=== PATIENT | female | born 1980 | race Caucasian/White ===

== ENCOUNTER 2022-08-29 11:20 | Outpatient (CLI) | payer OTHER, SELFPAY ==
--- NOTE | 2022-08-29 11:47 | MM_ITS ---
WS: [id number] SCREENING DIGITAL BREAST TOMOSYNTHESIS MAMMOGRAM WITH CAD HISTORY: SCREENING COMPARISON: None available. Bilateral CC and MLO with tomosynthesis and synthetic mammography submitted. Computer aided detection analyzed. Breast composition: There are scattered areas of fibroglandular density. Two asymmetries in the later al inferior RIGHT breast need further evaluation. This is a single asymmetry in the superior LEFT manisha ast on the MLO. No prior studies for comparison. MM/[place] [id number] IMPRESSION: BI-RADS: 0-Incomplete: Need additional imaging evaluation FOLLOW UP: Need Additional Imaging Bilateral breasts: Spot compression views (CC and MLO). True ML. Ultrasound to follow if abnormality persists.
== END 2022-08-29 11:21 | disposition home or self-care (01) ==
PROVIDERS: PCP Registered Nurse; Visit Provider Registered Nurse
DX: Z12.31 Encounter for screening mammogram for malignant neoplasm of breast (principal)
CPT/HCPCS: 77063; 77067

== ENCOUNTER 2022-09-05 21:06 | Emergency (ER) | payer OTHER, SELFPAY ==
[2022-09-05 21:10] VITALS: BP 125/86; PULSE 97; RESP 22; TEMP 36.6; O2SAT 95; BMI 34.1
--- NOTE | 2022-09-05 21:20 | ED_ITS ---
HPI - General Adult General: Chief complaint: General Medical Stated complaint: abdomen, constipation, rectal bleed after BM Time Seen by Provider: 09/05/22 21:17 History of Present Illness: Ms Upton is a 42-year-old lady presenting to the emergency department due to rectal pain and bleeding with constipation. She denies history of similar. Onset of symptoms is days however has progressively worsened. She reports rectal pain adamant that she is unable to sit. She denies other changes in health. No other specific changes in health, exacerbating, or alleviating factors identified. Location: pelvis and buttocks Severity: severe Pain Consistency: constant Relieving factors: none Exacerbating factors: other Associated symptoms: Reports other Review of Systems General: Reports: 10 or more systems reviewed and unremarkable except in HPI and below PFSH ED PFSH: Medical History Endometriosis Surgical History History of cholecystectomy History of endometrial ablation Apr 2016 Family History Grandfather Heart disease Mother Cancer lung Father Cancer lung Grandmother Cancer maternal lung Diabetes paternal Denies family history of Lung disease Stroke Social History Smoking and tobacco status: never smoked Second hand smoke exposure: Yes Alcohol intake: never Adopted: No Caregiver/support person: No Lives independently: No Household members: spouse Marital status: service: No Current occupational status: unemployed Sexually active: Yes Current gender identity: Female Physical Exam Const: COMMON NORMALS: alert GENERAL APPEARANCE: cooperative, well developed and in distress (Uncomfortable appearing secondary to pain) HENMT: COMMON NORMALS: normocephalic and atraumatic HEAD & SCALP: normocephalic and atraumatic Eye: COMMON NORMALS: conjunctivae normal CONJUNCTIVA: Yes conjunctivae normal SCLERA: sclerae normal Neck/C-Spine: COMMON NORMALS: supple GENERAL: Yes trachea midline Resp: COMMON NORMALS: No use of accessory muscles and clear to auscultation bilaterally EFFORT & INSPECTION: Yes able to speak in complete sentences AUSCULTATION: clear to auscultation bilaterally Cardio: COMMON NORMALS: regular rate and regular rhythm RATE: regular rate RHYTHM: regular rhythm GI: COMMON NORMALS: Soft to palpation PALPATION: Yes Soft to palpation and No Tenderness to palpation present (GI) Extremity: GENERAL: Yes normal exam except as noted and No edema Neuro: COMMON NORMALS: moves all extremities SENSORIUM/ORIENTATION: Yes alert and No Orientation impaired Psych: COMMON NORMALS: mental status grossly normal and Normal thought process present THOUGHT PROCESS: Normal thought process present Course Vital Signs: Vital signs: Vital Signs Temperature 97.9 F 09/05/22 21:10 Pulse Rate 99 09/05/22 21:51 Respiratory Rate 16 09/05/22 21:51 Blood Pressure 125/86 09/05/22 21:10 Pulse Oximetry 100 09/05/22 21:51 Oxygen Delivery Me thod 09/05/22 21:10 [facility] - General Adult Medical Decision Making 42-year-old lady presenting with rectal pain and constipation with small mount of rectal bleeding associated with straining. Patient is nontoxic and quite uncomfortable. Analgesia given. Rectal exam performed with advertising supervisor present. Anal disimpaction performed with only small amount of hard stool extraluminal however within the rectum I did break up some hard chunks of stool. Subsequently ordered p.o. and [place] medications however patient had successful bowel movement with large volume and felt significant improved with complete resolution of rectal pain and reported bleeding. Most likely etiology of patient's symptoms is fecal impaction with improvement with ED treatment. Need for continued regimen discussed need for continued treatment at home which the patient prefers. The results of ED evaluation were discussed with the patient including prescriptions and/or symptomatic cares (if applicable) including appropriate and responsible use, followup plan, and return precautions. The patient verbalized understanding and felt safe for discharge. Medical Records I reviewed the patient's medical records. Lab Data I reviewed the patient's lab results. Discharge Plan Discharge Patient Disposition: Home Clinical Impression: Constipation, Pain, rectal Condition: Stable Prescriptions: New Miralax 17 gram powder in packet 17 g PO TID Qty: 100 0RF No Action pantoprazole 40 mg tablet,delayed release (DR/EC) 40 mg PO DAILY 30 Days Qty: 30 0RF Discharge Orders: Discharge ED (Routine); Ordered 09/05/22 Ordered By: Nolan Cameron Referrals: Jessi Lindsay FNP [Primary Care Provider] - Discharge Diet: Advance as tolerated and Clear Liquid Discharge Activity: Increase activity as tolerated Patient Instructions: Constipation (ED), Rectal Bleeding (ED), Fecal Impaction (ED), Opioid Safety Activity Restrictions/Additional Instructions: Thank you for visiting the emergency department. You were seen and evaluated for constipation and rectal pain. The most likely cause of this is impaction with constipation. We are pleased that you had improvement after ED treatment. I will prescribe continued bowel regimen. Start with miralax 3 times daily for 3 days and then adjust as needed for multiple applesauce consistency stools per day. Please follow-up with your primary care provider. Return to the emergency department for uncontrolled symptoms or anything else that you are concerned about and feel needs emergency department evaluation. Coding Level of Care Code ED Import Coordinator for Linda Hester
[2022-09-05] MEDS: fentaNYL 50 mcg/mL INJ 2mL IVP (21:46)
[2022-09-05 21:51] VITALS: PULSE 99; RESP 16; O2SAT 100
[2022-09-05] MEDS: lidocaine 2% Urojet 20 mL TOPICAL (22:15)
== END 2022-09-05 22:30 | disposition home or self-care (01) ==
PROVIDERS: Emergency Provider Emergency Medicine; PCP Registered Nurse
DX: K59.00 Constipation, unspecified (principal)
CPT/HCPCS: 96374; 99284; J3010

== ENCOUNTER 2022-10-11 08:56 | Outpatient (CLI) | payer OTHER, SELFPAY ==
--- NOTE | 2022-10-11 09:06 | MM_ITS ---
WS: [id number] BILATERAL 3D TOMOSYNTHESIS DIGITAL DIAGNOSTIC MAMMOGRAPHY WITH CAD CLINICAL INFORMATION: BILAT DEN/ HISTORY: History of breast reduction. Additional views. COMPARISON: None. TECHNIQUE: Bilateral CC, MLO, and ML views. FINDINGS: The breasts are composed of extremely dense tissue, which can limit the detection of small underlying mass lesions. Previously described bilateral breast asymmetries are again seen and partially bev s out on the spot compression views. Ultrasound described below. ULTRASOUND BREAST BILATERAL TECHNIQUE: Ultrasound bilateral breast focused area of concern. CLINICAL INFORMATION: BILAT DEN/ FINDINGS: Incidental ductal ectasia bilaterally. RIGHT BREAST: Normal ultrasound RIGHT breast at the 6 to 9:00 position. LEFT BREAST: Normal ultrasound LEFT breast 12 to 3:00 position. MM/[place] [id number] IMPRESSION: BI-RADS: 2-Benign FOLLOW UP: 1 Year Follow-up Recommend return to annual screening mammography.
--- NOTE | 2022-10-11 09:11 | US_ITS ---
WS: [id number] BILATERAL 3D TOMOSYNTHESIS DIGITAL DIAGNOSTIC MAMMOGRAPHY WITH CAD CLINICAL INFORMATION: BILAT DEN/ HISTORY: History of breast reduction. Additional views. COMPARISON: None. TECHNIQUE: Bilateral CC, MLO, and ML views. FINDINGS: The breasts are composed of extremely dense tissue, which can limit the detection of small underlying mass lesions. Previously described bilateral breast asymmetries are again seen and partially bev s out on the spot compression views. Ultrasound described below. ULTRASOUND BREAST BILATERAL TECHNIQUE: Ultrasound bilateral breast focused area of concern. CLINICAL INFORMATION: BILAT DEN/ FINDINGS: Incidental ductal ectasia bilaterally. RIGHT BREAST: Normal ultrasound RIGHT breast at the 6 to 9:00 position. LEFT BREAST: Normal ultrasound LEFT breast 12 to 3:00 position. US/US breast BI limited* [id number] IMPRESSION: BI-RADS: 2-Benign FOLLOW UP: 1 Year Follow-up Recommend return to annual screening mammography.
== END 2022-10-11 08:57 | disposition home or self-care (01) ==
LOC: RAD 08:58
PROVIDERS: PCP Registered Nurse; Visit Provider Registered Nurse
DX: R92.8 Other abnormal and inconclusive findings on diagnostic imaging of breast (principal)
CPT/HCPCS: 76642; 77062; G0279

== ENCOUNTER → 2022-11-23 08:09 | Outpatient (BNVA) | payer OTHER, SELFPAY | PROVIDERS: PCP Registered Nurse; Visit Provider Nurse Practitioner Women's Health | DX: Z32.00 Encounter for pregnancy test, result unknown (principal) | CPT/HCPCS: 81025 ==

== ENCOUNTER → 2022-12-10 09:50 | Outpatient (BNVA) | payer OTHER, SELFPAY | PROVIDERS: PCP Registered Nurse; Visit Provider Obstetrics & Gynecology | DX: Z34.90 Encounter for supervision of normal pregnancy, unspecified, unspecified trimester (principal); Z3A.00 Weeks of gestation of pregnancy not specified | CPT/HCPCS: 80307; 84315; 87086 ==

== ENCOUNTER → 2022-12-31 10:00 | Outpatient (BNVA) | payer OTHER, SELFPAY | PROVIDERS: PCP Registered Nurse; Visit Provider Obstetrics & Gynecology | DX: O09.899 Supervision of other high risk pregnancies, unspecified trimester (principal); O09.519 Supervision of elderly primigravida, unspecified trimester; O21.9 Vomiting of pregnancy, unspecified | CPT/HCPCS: 84315; 84443; 85027; 86592; 86762; 86803; 86850; 86900; 87340; 87491; 87591; 87661; 87806 ==

== ENCOUNTER → 2023-10-28 09:27 | Outpatient (BNVA) | payer OTHER, SELFPAY | PROVIDERS: PCP Registered Nurse; Referring Provider Registered Nurse; Visit Provider Specialist | DX: M25.561 Pain in right knee (principal); S89.91XA Unspecified injury of right lower leg, initial encounter; X50.9XXA Other and unspecified overexertion or strenuous movements or postures, initial encounter | CPT/HCPCS: 73560; 73565 ==

== ENCOUNTER 2023-11-29 14:10 | Outpatient (CLI) | payer OTHER, SELFPAY ==
--- NOTE | 2023-11-29 14:30 | MR_ITS ---
WS: [id number] MRI RIGHT KNEE NONCONTRAST TECHNIQUE: Axial PD, coronal PD fat sat, coronal PD, sagittal PD, and sagittal PD fat-sat images obta ined. CLINICAL INFORMATION: right knee pain COMPARISON: None. FINDINGS: Distal quadriceps and patella tendons are intact. Hypertrophic patella. Normal ACL and PCL. Hypertrop hic patella. Small suprapatellar effusion. Moderate chondromalacia patella worse involving the latera l patellar facet. High-grade tear of the medial patellar retinaculum with laxity involving the retina culum. Subluxation of the patella on the trochlear groove. Somewhat shallow trochlear groove. No visu alized contusion in the femoral condyle. No visualized intra-articular loose bodies or fragments. Sma ll amount of bony edema at the medial patellar retinacular insertion. Normal medial meniscus. Suspected radial tear involving the lateral meniscus at the meniscal root. No rmal lateral collateral ligament. Normal biceps femoris. Small amount of fluid and edema deep to the MCL which appears intact. Normal popliteal fossa. MR/MR knee RT wo con* [id number] IMPRESSION: 1. Evidence of recent patellar dislocation with high-grade tear of the medial patellar retinaculum. Small amount of edema in the medial patella facet. No vis ualized avulsion fragments. 2. Subluxation of the patella in the trochlear groove. Somewhat shallow trochl ear groove. Chondromalacia and chondral contusion involving the lateral patella r facet. 3. No visualized contusion in the lateral femoral condyle. 4. Suspect possible radial tear involving the lateral meniscus at the meniscal root. Normal medial meniscus. 5. Small suprapatellar effusion. 6. Small amount of fluid and edema deep to the medial collateral ligament comp atible with grade 1-2 injury. 7. Normal lateral collateral ligament. Outbridge grading: grade II: blister-like swelling/fraying of articular cartila ge extending to surface
== END 2023-11-29 14:11 | disposition home or self-care (01) ==
LOC: RAD 14:10
PROVIDERS: PCP Registered Nurse; Visit Provider Specialist
DX: S83.094A Other dislocation of right patella, initial encounter (principal); S83.412A Sprain of medial collateral ligament of left knee, initial encounter; M22.41 Chondromalacia patellae, right knee; X58.XXXA Exposure to other specified factors, initial encounter
CPT/HCPCS: 73721

== ENCOUNTER 2024-10-20 15:28 | Outpatient (CLI) | payer OTHER, SELFPAY ==
--- NOTE | 2024-10-20 15:36 | XRR_ITS ---
PROCEDURE INFORMATION: Exam: XR Chest Exam date and time: 10/20/2024 3:57 PM Age: 44 years old Clinical indication: Shortness of breath; Prior surgery; Surgery date: 6+ months; Surgery type: Breast reduction, gb; Recently dx of weather asthma on vacation for the last week, difficulty breathing and extreme SOB upon exertion; Additional info: J98.01 - acute bronchospasm TECHNIQUE: Imaging protocol: Radiologic exam of the chest. Views: 2 views. COMPARISON: No relevant prior studies available. FINDINGS: Lungs: Unremarkable. No consolidation. Pleural spaces: Unremarkable. No pleural effusion. No pneumothorax. Heart/Mediastinum: Unremarkable. No cardiomegaly. Bones/joints: Unremarkable. XR/XR chest 2V* [id number] IMPRESSION: No acute findings.
[2024-10-20 16:21] LABS: Basophils # 0.1 10^3/uL (0.0-0.1); Basophils % 0.5 %; Eosinophils # 0.2 10^3/uL (0.0-0.8); Eosinophils % 2.2 %; Lymphocytes # 2.2 10^3/uL (0.8-4.8); Lymphocytes % 22.5 %; Mean Corpuscular HGB Conc 31.6 g/dL (30-55); Mean Corpuscular Hemoglobin 26.7 pg (27-33); Mean Corpuscular Volume 84.5 fl (85-98); Mean Platelet Volume 8.8 fL (7.4-10.4); Monocytes # 0.5 10^3/uL (0.2-0.9); Monocytes % 5.3 %; Neutrophils # 6.62 10^3/uL (1.8-7.7); Neutrophils % 69.1 %; Nucleated Red Blood Cells % 0 %; Platelet Count 347 10^3/cmm (157-399); Red Blood Count 5.09 10^6/uL (3.85-5.65); Red Cell Distribution Width 13.1 % (12.1-15.1); White Blood Count 9.59 10^3/uL (3.29-11.43)
[2024-10-20 16:22] LABS: Erythrocyte Sedimentation Rate 20 mm/hr (0-15)
[2024-10-20 16:42] LABS: D Dimer 0.31 ug/mLFEU (0-0.59)
[2024-10-20 17:19] LABS: Blood Urea Nitrogen 15 mg/dL (6-20); C Reactive Protein 20.9 mg/L (0.0-4.9); Calcium 9.2 mg/dL (8.5-10.5); Carbon Dioxide 24 mmol/L (22-29); Chloride 102 mmol/L (98-107); Glomerular Filtration Rate 91.8 mL/min (90-130); Glucose 93 mg/dL (65-115); Osmolality Calculated 289 mOsm/kg (285-295); Sodium 139 mmol/L (136-145)
[2024-10-20 17:23] LABS: Anion Gap 16.7 (5-19); Potassium 3.7 mmol/L (3.5-5.1)
== END 2024-10-20 15:29 | disposition home or self-care (01) ==
LOC: LAB 15:29
PROVIDERS: PCP Registered Nurse; Visit Provider Registered Nurse
DX: J98.01 Acute bronchospasm (principal); R06.02 Shortness of breath
CPT/HCPCS: 36415; 71046; 80048; 85025; 85378; 85651; 86140

== ENCOUNTER → 2025-04-29 11:21 | Outpatient (BNVA) | payer OTHER, SELFPAY | PROVIDERS: PCP Registered Nurse; Visit Provider Registered Nurse | DX: R32 Unspecified urinary incontinence (principal) | CPT/HCPCS: 81000 ==

== ENCOUNTER → 2025-05-12 14:58 | Outpatient (BNVA) | payer OTHER, SELFPAY | PROVIDERS: PCP Registered Nurse; Visit Provider Obstetrics & Gynecology | DX: Z86.39 Personal history of other endocrine, nutritional and metabolic disease (principal); Z01.419 Encounter for gynecological examination (general) (routine) without abnormal findings | CPT/HCPCS: 84443; 87624 ==